=== PATIENT | male | born 1960 | race African-American/Black ===

== ENCOUNTER 2016-05-13 22:43 | Observation (INO) | payer SELFPAY ==
[2016-05-13 23:02] VITALS: BMI 27.3
[2016-05-13 23:11] LABS: ALL NEG? NO
[2016-05-13 23:21] LABS: AUTOMATED BASOPHIL 1.5 % (0-2); AUTOMATED EOSINOPHIL 1.6 % (0-5); AUTOMATED LYMPH 32.2 % (17-44); AUTOMATED MONOCYTE 6.5 % (3-10); AUTOMATED NEUTROPHIL 58.2 % (45-76)
[2016-05-13 23:24] LABS: BLOOD UREA NITROGEN 11 MG/DL (9-20); CALC CORRECTED 9.3 MG/DL (8.4-10.2); CALCIUM 9.1 MG/DL (8.4-10.2); CALCULATED OSMOLALITY 266 MOs/Kg (270-290); CHLORIDE 105 mEq/L (98-107); ETOH-MGDL 13 mg/dL; GLUCOSE 78 MG/DL (70-99); SODIUM LEVEL 139 mEq/L (137-146); TOTAL PROTEIN 7.7 G/DL (6.3-8.2)
[2016-05-13 23:34] LABS: LEUKOCYTES/URINE NEG (NEGATIVE); NITRITE/URINE NEG (NEGATIVE); URINE OCCULT BLOOD NEG (NEG/TRACE)
[2016-05-13 23:40] LABS: MDMA* NEG (NEGATIVE); METHAMPHETAMINES NEG (NEGATIVE); OXYCODONE NEG (NEGATIVE)
[2016-05-13 23:42] LABS: RBC/URINE 0-2 (0-2); WBC/URINE 0-2 (0-2)
--- NOTE | 2016-05-14 01:56 | EDPRACDOC ---
- General Information Mode of Arrival: Car - History of Present Illness Onset: 2 weeks HPI: PATIENT PRESENTS WITH SUICIDAL IDEATIONS. PRIOR ATTEMPT BY OVERDOSE. STATES USES COCAINE. TRIGGER IS THINKING ABOUT FIANCE HE LOST. NOT TAKING MEDICATIONS PRESCRIBED TO HIM Reason for Seeking Treatment: Self-referral Presents With: Reports: Depression, Suicidal Ideation Expresses: Reports: Suicidal Plan Suicidal Plan: Reports: Overdose Stressors: Reports: Relationships Relevant History: Reports: Depression, Suicidal Attempt Tetanus Up To Date?: Yes Able to Care for Self: Yes Able to Control Self: Yes Associated Signs and Symptoms: Reports: Cocaine <Feliz Lovelace - Last Filed: 05/14/16 01:56> <ArturoChe Babar - Last Filed: 05/14/16 14:18> - General Information Chief Complaint: Psychiatric Illness Stated Complaint: SI/DEPRESSION/ADDICTION Time Seen by Provider: 05/14/16 01:18 ED Past Medical History - History Reviewed Yes Nurses notes reviewed and agree except as marked Travel Outside of [place] in the Last 3 Months?: No - Patient Medical History Cardiac History: Reports: Hypertension Psychological History: Reports: Depression, Anxiety, Schizophrenia, Bipolar Disorder - Social Medical History Substance Abuse: Illicit Drugs Lives With: Family Lives In: Home <Feliz Lovelace - Last Filed: 05/14/16 01:56> EDM Review of Systems - Review of Systems ROS Negative Except as Marked: Yes All systems reviewed and were negative except as marked Constitutional: No Symptoms Reported. negative: Fever, Chills, Weakness, Fatigue, Loss of Appetite Eyes: No Symptoms Reported. negative: Redness, Blurred Vision, Double Vision, Discharge, Pain, Light Sensitive, Photophobia Ears: No Symptoms Reported. negative: Pain, Hearing Loss, Drainage, Ear Pulling Throat: No Symptoms Reported. negative: Pain, Swelling Nose: No Symptoms Reported. negative: Congestion, Bleeding, Discharge, Injection, Swelling, Deformity, Ecchymosis, Tender, Abrasion, Laceration Mouth: No Symptoms Reported. negative: Pain, Drooling Respiratory: No Symptoms Reported. negative: Cough, Brassy Cough, Barky Cough, Shortness of Breath, Wheezing, Hemoptysis Cardiovascular: No Symptoms Reported. negative: Chest Pain, Palpitations, Syncope, Edema, Orthopnea, PND, Skin Mottling, Cyanosis Gastrointestinal: No Symptoms Reported. negative: Pain, Constipation, Nausea, Vomiting, Diarrhea, Melena, Formula Intolerance Genitourinary: No Symptoms Reported. negative: Dysuria, Hematuria, Frequency, Discharge, Bleeding, Testicular Pain, Neurological: No Symptoms Reported. negative: Headache, Dizziness, Seizure, Numbness, Weakness, Speech Difficulty, Gait Difficulty Musculoskeletal: No Symptoms Reported. negative: Neck, Chestwall, Ribs, Back, Shoulder, Arm, Elbow, Forearm, Wrist, Hand, Pelvis, Hip, Femur, Knee, Leg, Ankle , Foot Integumentary: No Symptoms Reported. negative: Itching, Rash, Bruising, Wound Allergic/Immunologic: No Symptoms Reported. negative: Hives, Itching Hematologic: No Symptoms Reported. negative: Lymphadenopathy, Easy Bruising, Easy Bleeding Endocrine: No Symptoms Reported. negative: Weight Gain, Weight Loss Psychiatric: Suicidal. negative: Anxiety, Depression, Hallucinations, Insomnia <LovelaceWaleFeliz - Last Filed: 05/14/16 01:56> - Physical Exam Constitutional: Alert (Awake), No apparent distress Oriented to: Time, Person, Place Last recorded Vital Signs: Last Vital Signs Temp 98.3 F 05/13/16 22:58 Pulse 76 05/13/16 22:58 Resp 20 05/13/16 22:58 BP 146/89 05/13/16 22:58 Pulse Ox 97 05/13/16 22:58 Oxygen Pulse Oxygen Saturation 97 O2 Device Room Air Oxygen Flow Rate Fraction of Inspired Oxygen ( FIO2) - HEENT Head: Normal ( normocephalic) Eye Exam: Normal (PERRL, EOMI, Sclera white) Oropharynx: Normal (Pharynx:Moist without exudate,Gums-no swelling) Tympanic Membrane: Normal ENT EAC: Normal TMJ: Normal Nose: No Symptoms Reported (septum midline) Neck: Normal (FROM, trachea at midline) - Respiratory/Cardiovascular Respiratory: Normal - CTA (BBS clear to auscultation without adventitious sounds ) Cardiovascular: Normal (RRR without murmur, gallop or rub) - GI Auscultation: Normal (NABS) Palpation: Normal (Soft,No rebound or guarding, non distended) Tenderness: Non tender Orozco's Sign: Negative - Musculoskeletal Back: Normal (Non-Tender) Extremities: Normal (Normal tone, Pulses 2+ No cyanosis or edema, FROM) - Integumentary Skin: Normal, Warm, Dry Lymphatics: Normal (no adenopathy) - Neurologic Memory Impaired: Normal Motor Function: Normal (Normal tone, Pulses 2+ No cyanosis or edema, FROM) Cranial Nerve: Normal (CN II-X11 intact sensation, strength 5/5) Cerebellar: Normal Mood Description: Depressed Thought: Coherent Perception: Normal <Feliz Lovelace - Last Filed: 05/14/16 01:56> - Physical Exam Last recorded Vital Signs: Last Vital Signs Temp 98.0 F 05/14/16 12:00 Pulse 69 05/14/16 12:00 Resp 20 05/14/16 12:00 BP 125/71 05/14/16 12:00 Pulse Ox 98 05/14/16 12:00 Oxygen Pulse Oxygen Saturation 97 O2 Device Room Air Oxygen Flow Rate Fraction of Inspired Oxygen ( FIO2) <Che Morris - Last Filed: 05/14/16 14:18> - Results 05/13/16 23:02 05/13/16 23:02 WBC 7.8 xk/uL (3.8-10.8) 05/13/16 23:02 RBC 4.91 xM/uL (4.70-6.10) 05/13/16 23:02 Hgb 12.6 g/dL (14.0-18.0) L 05/13/16 23:02 Hct 38.6 % (42-52) L 05/13/16 23:02 MCV 79 fL (80-94) L 05/13/16 23:02 MCH 25.6 pg (27-32) L 05/13/16 23:02 MCHC 32.6 g/dl (33-36) L 05/13/16 23:02 RDW 15.5 % (11.5-14.5) H 05/13/16 23:02 Plt Count 263 xk/uL (130-400) 05/13/16 23:02 MPV 8.0 fL (7.4-10.4) 05/13/16 23:02 Neut % (Auto) 58.2 % (45-76) 05/13/16 23:02 Lymph % (Auto) 32.2 % (17-44) 05/13/16 23:02 Avery % (Auto) 6.5 % (3-10) 05/13/16 23:02 Eos % (Auto) 1.6 % (0-5) 05/13/16 23:02 Baso % (Auto) 1.5 % (0-2) 05/13/16 23:02 Absolute Neuts (auto) 4.52 xk/uL (1.7-8.2) 05/13/16 23:02 Absolute Lymphs (auto) 2.50 xk/uL (0.65-4.75) 05/13/16 23:02 Sodium 139 mEq/L (137-146) 05/13/16 23:02 Potassium 3.3 mEq/L (3.5-5.1) L 05/13/16 23:02 Chloride 105 mEq/L (98-107) 05/13/16 23:02 Carbon Dioxide 22 mMOL/L (22-33) 05/13/16 23:02 Anion Gap 15 mEq/L (8-16) 05/13/16 23:02 BUN 11 MG/DL (9-20) 05/13/16 23:02 Creatinine 0.90 MG/DL (0.66-1.25) 05/13/16 23:02 Estimated GFR (MDRD) > 60 mL/min (>=60) 05/13/16 23:02 Glucose 78 MG/DL (70-99) 05/13/16 23:02 Calculated Osmolality 266 MOs/Kg (270-290) L 05/13/16 23:02 Calcium 9.1 MG/DL (8.4-10.2) 05/13/16 23:02 Corrected Calcium 9.3 MG/DL (8.4-10.2) 05/13/16 23:02 Total Bilirubin 0.5 MG/DL (0.2-1.3) 05/13/16 23:02 AST 26 IU/L (17-59) 05/13/16 23:02 ALT 33 IU/L (21-72) 05/13/16 23:02 Alkaline Phosphatase 89 IU/L (38-126) 05/13/16 23:02 Total Protein 7.7 G/DL (6.3-8.2) 05/13/16 23:02 Albumin 3.8 G/DL (3.5-5.0) 05/13/16 23:02 Urine Color Yellow 05/13/16 23:09 Urine Clarity Clear 05/13/16 23:09 Urine pH 5.0 (5.0-8.0) 05/13/16 23:09 Ur Specific Shelley 1.005 05/13/16 23:09 Urine Protein Neg (NEG/TRACE) 05/13/16 23:09 Urine Glucose (UA) Neg (NEGATIVE) 05/13/16 23:09 Urine Ketones Neg (NEGATIVE) 05/13/16 23:09 Urine Occult Blood Neg (NEG/TRACE) 05/13/16 23:09 Urine Nitrite Neg (NEGATIVE) 05/13/16 23:09 Urine Bilirubin Neg (NEGATIVE) 05/13/16 23:09 Urine Urobilinogen 0.2 MG/DL (0-1) 05/13/16 23:09 Ur Leukocyte Esterase Neg (NEGATIVE) 05/13/16 23:09 Urine RBC 0-2 (0-2) 05/13/16 23:09 Urine WBC 0-2 (0-2) 05/13/16 23:09 Ur Epithelial Cells Occ 05/13/16 23:09 Urine Bacteria Few (NEG/FEW) 05/13/16 23:09 Urine Mucus Occ (NEG/OCC) 05/13/16 23:09 Urine Opiates Screen Neg (NEGATIVE) 05/13/16 23:09 Ur Oxycodone Screen Neg (NEGATIVE) 05/13/16 23:09 Urine Methadone Screen Neg (NEGATIVE) 05/13/16 23:09 Ur Barbiturates Screen Neg (NEGATIVE) 05/13/16 23:09 Ur Tricyclics Screen Neg (NEGATIVE) 05/13/16 23:09 Ur Phencyclidine Scrn Neg (NEGATIVE) 05/13/16 23:09 Ur Amphetamines Screen Neg (NEGATIVE) 05/13/16 23:09 U Methamphetamines Scrn Neg (NEGATIVE) 05/13/16 23:09 Urine MDMA Screen Neg (NEGATIVE) 05/13/16 23:09 U Benzodiazepines Scrn Neg (NEGATIVE) 05/13/16 23:09 Urine Cocaine Screen *positive* (NEGATIVE) H 05/13/16 23:09 Ur THC Screen Neg (NEGATIVE) 05/13/16 23:09 Plasma/Serum Ethyl Alc 0.01 % (<0.01) H 05/13/16 23:02 Lab Results 05/13/16 05/13/16 05/13/16 23:09 23:09 23:02 WBC 7.8 RBC 4.91 Hgb 12.6 L Hct 38.6 L MCV 79 L MCH 25.6 L MCHC 32.6 L RDW 15.5 H Plt Count 263 MPV 8.0 Neut % (Auto) 58.2 Lymph % (Auto) 32.2 Avery % (Auto) 6.5 Eos % (Auto) 1.6 Baso % (Auto) 1.5 Absolute Neuts (auto) 4.52 Absolute Lymphs (auto) 2.50 Sodium Potassium Chloride Carbon Dioxide Anion Gap BUN Creatinine Estimated GFR (MDRD) Glucose Calculated Osmolality Calcium Corrected Calcium Total Bilirubin AST ALT Alkaline Phosphatase Total Protein Albumin Urine Color Yellow Urine Clarity Clear Urine pH 5.0 Ur Specific Shelley 1.005 Urine Protein Neg Urine Glucose (UA) Neg Urine Ketones Neg Urine Occult Blood Neg Urine Nitrite Neg Urine Bilirubin Neg Urine Urobilinogen 0.2 Ur Leukocyte Esterase Neg Urine RBC 0-2 Urine WBC 0-2 Ur Epithelial Cells Occ Urine Bacteria Few Urine Mucus Occ Urine Opiates Screen Neg Ur Oxycodone Screen Neg Urine Methadone Screen Neg Ur Barbiturates Screen Neg Ur Tricyclics Screen Neg Ur Phencyclidine Scrn Neg Ur Amphetamines Screen Neg U Methamphetamines Scrn Neg Urine MDMA Screen Neg U Benzodiazepines Scrn Neg Urine Cocaine Screen *positive* H Ur THC Screen Neg Plasma/Serum Ethyl Alc 05/13/16 23:02 WBC RBC Hgb Hct MCV MCH MCHC RDW Plt Count MPV Neut % (Auto) Lymph % (Auto) Avery % (Auto) Eos % (Auto) Baso % (Auto) Absolute Neuts (auto) Absolute Lymphs (auto) Sodium 139 Potassium 3.3 L Chloride 105 Carbon Dioxide 22 Anion Gap 15 BUN 11 Creatinine 0.90 Estimated GFR (MDRD) > 60 Glucose 78 Calculated Osmolality 266 L Calcium 9.1 Corrected Calcium 9.3 Total Bilirubin 0.5 AST 26 ALT 33 Alkaline Phosphatase 89 Total Protein 7.7 Albumin 3.8 Urine Color Urine Clarity Urine pH Ur Specific Shelley Urine Protein Urine Glucose (UA) Urine Ketones Urine Occult Blood Urine Nitrite Urine Bilirubin Urine Urobilinogen Ur Leukocyte Esterase Urine RBC Urine WBC Ur Epithelial Cells Urine Bacteria Urine Mucus Urine Opiates Screen Ur Oxycodone Screen Urine Methadone Screen Ur Barbiturates Screen Ur Tricyclics Screen Ur Phencyclidine Scrn Ur Amphetamines Screen U Methamphetamines Scrn Urine MDMA Screen U Benzodiazepines Scrn Urine Cocaine Screen Ur THC Screen Plasma/Serum Ethyl Alc 0.01 H <Feliz Lovelace - Last Filed: 05/14/16 01:56> - Results 05/13/16 23:02 05/13/16 23:02 WBC 7.8 xk/uL (3.8-10.8) 05/13/16 23:02 RBC 4.91 xM/uL (4.70-6.10) 05/13/16 23:02 Hgb 12.6 g/dL (14.0-18.0) L 05/13/16 23:02 Hct 38.6 % (42-52) L 05/13/16 23:02 MCV 79 fL (80-94) L 05/13/16 23:02 MCH 25.6 pg (27-32) L 05/13/16 23:02 MCHC 32.6 g/dl (33-36) L 05/13/16 23:02 RDW 15.5 % (11.5-14.5) H 05/13/16 23:02 Plt Count 263 xk/uL (130-400) 05/13/16 23:02 MPV 8.0 fL (7.4-10.4) 05/13/16 23:02 Neut % (Auto) 58.2 % (45-76) 05/13/16 23:02 Lymph % (Auto) 32.2 % (17-44) 05/13/16 23:02 Avery % (Auto) 6.5 % (3-10) 05/13/16 23:02 Eos % (Auto) 1.6 % (0-5) 05/13/16 23:02 Baso % (Auto) 1.5 % (0-2) 05/13/16 23:02 Absolute Neuts (auto) 4.52 xk/uL (1.7-8.2) 05/13/16 23:02 Absolute Lymphs (auto) 2.50 xk/uL (0.65-4.75) 05/13/16 23:02 Sodium 139 mEq/L (137-146) 05/13/16 23:02 Potassium 3.3 mEq/L (3.5-5.1) L 05/13/16 23:02 Chloride 105 mEq/L (98-107) 05/13/16 23:02 Carbon Dioxide 22 mMOL/L (22-33) 05/13/16 23:02 Anion Gap 15 mEq/L (8-16) 05/13/16 23:02 BUN 11 MG/DL (9-20) 05/13/16 23:02 Creatinine 0.90 MG/DL (0.66-1.25) 05/13/16 23:02 Estimated GFR (MDRD) > 60 mL/min (>=60) 05/13/16 23:02 Glucose 78 MG/DL (70-99) 05/13/16 23:02 Calculated Osmolality 266 MOs/Kg (270-290) L 05/13/16 23:02 Calcium 9.1 MG/DL (8.4-10.2) 05/13/16 23:02 Corrected Calcium 9.3 MG/DL (8.4-10.2) 05/13/16 23:02 Total Bilirubin 0.5 MG/DL (0.2-1.3) 05/13/16 23:02 AST 26 IU/L (17-59) 05/13/16 23:02 ALT 33 IU/L (21-72) 05/13/16 23:02 Alkaline Phosphatase 89 IU/L (38-126) 05/13/16 23:02 Total Protein 7.7 G/DL (6.3-8.2) 05/13/16 23:02 Albumin 3.8 G/DL (3.5-5.0) 05/13/16 23:02 Urine Color Yellow 05/13/16 23:09 Urine Clarity Clear 05/13/16 23:09 Urine pH 5.0 (5.0-8.0) 05/13/16 23:09 Ur Specific Shelley 1.005 05/13/16 23:09 Urine Protein Neg (NEG/TRACE) 05/13/16 23:09 Urine Glucose (UA) Neg (NEGATIVE) 05/13/16 23:09 Urine Ketones Neg (NEGATIVE) 05/13/16 23:09 Urine Occult Blood Neg (NEG/TRACE) 05/13/16 23:09 Urine Nitrite Neg (NEGATIVE) 05/13/16 23:09 Urine Bilirubin Neg (NEGATIVE) 05/13/16 23:09 Urine Urobilinogen 0.2 MG/DL (0-1) 05/13/16 23:09 Ur Leukocyte Esterase Neg (NEGATIVE) 05/13/16 23:09 Urine RBC 0-2 (0-2) 05/13/16 23:09 Urine WBC 0-2 (0-2) 05/13/16 23:09 Ur Epithelial Cells Occ 05/13/16 23:09 Urine Bacteria Few (NEG/FEW) 05/13/16 23:09 Urine Mucus Occ (NEG/OCC) 05/13/16 23:09 Urine Opiates Screen Neg (NEGATIVE) 05/13/16 23:09 Ur Oxycodone Screen Neg (NEGATIVE) 05/13/16 23:09 Urine Methadone Screen Neg (NEGATIVE) 05/13/16 23:09 Ur Barbiturates Screen Neg (NEGATIVE) 05/13/16 23:09 Ur Tricyclics Screen Neg (NEGATIVE) 05/13/16 23:09 Ur Phencyclidine Scrn Neg (NEGATIVE) 05/13/16 23:09 Ur Amphetamines Screen Neg (NEGATIVE) 05/13/16 23:09 U Methamphetamines Scrn Neg (NEGATIVE) 05/13/16 23:09 Urine MDMA Screen Neg (NEGATIVE) 05/13/16 23:09 U Benzodiazepines Scrn Neg (NEGATIVE) 05/13/16 23:09 Urine Cocaine Screen *positive* (NEGATIVE) H 05/13/16 23:09 Ur THC Screen Neg (NEGATIVE) 05/13/16 23:09 Plasma/Serum Ethyl Alc 0.01 % (<0.01) H 05/13/16 23:02 RPR Nonreactive (NONREACTIVE) 05/13/16 23:02 Lab Results 05/13/16 05/13/16 05/13/16 23:09 23:09 23:02 WBC RBC Hgb Hct MCV MCH MCHC RDW Plt Count MPV Neut % (Auto) Lymph % (Auto) Avery % (Auto) Eos % (Auto) Baso % (Auto) Absolute Neuts (auto) Absolute Lymphs (auto) Sodium Potassium Chloride Carbon Dioxide Anion Gap BUN Creatinine Estimated GFR (MDRD) Glucose Calculated Osmolality Calcium Corrected Calcium Total Bilirubin AST ALT Alkaline Phosphatase Total Protein Albumin Urine Color Yellow Urine Clarity Clear Urine pH 5.0 Ur Specific Shelley 1.005 Urine Protein Neg Urine Glucose (UA) Neg Urine Ketones Neg Urine Occult Blood Neg Urine Nitrite Neg Urine Bilirubin Neg Urine Urobilinogen 0.2 Ur Leukocyte Esterase Neg Urine RBC 0-2 Urine WBC 0-2 Ur Epithelial Cells Occ Urine Bacteria Few Urine Mucus Occ Urine Opiates Screen Neg Ur Oxycodone Screen Neg Urine Methadone Screen Neg Ur Barbiturates Screen Neg Ur Tricyclics Screen Neg Ur Phencyclidine Scrn Neg Ur Amphetamines Screen Neg U Methamphetamines Scrn Neg Urine MDMA Screen Neg U Benzodiazepines Scrn Neg Urine Cocaine Screen *positive* H Ur THC Screen Neg Plasma/Serum Ethyl Alc RPR Nonreactive 05/13/16 05/13/16 23:02 23:02 WBC 7.8 RBC 4.91 Hgb 12.6 L Hct 38.6 L MCV 79 L MCH 25.6 L MCHC 32.6 L RDW 15.5 H Plt Count 263 MPV 8.0 Neut % (Auto) 58.2 Lymph % (Auto) 32.2 Avery % (Auto) 6.5 Eos % (Auto) 1.6 Baso % (Auto) 1.5 Absolute Neuts (auto) 4.52 Absolute Lymphs (auto) 2.50 Sodium 139 Potassium 3.3 L Chloride 105 Carbon Dioxide 22 Anion Gap 15 BUN 11 Creatinine 0.90 Estimated GFR (MDRD) > 60 Glucose 78 Calculated Osmolality 266 L Calcium 9.1 Corrected Calcium 9.3 Total Bilirubin 0.5 AST 26 ALT 33 Alkaline Phosphatase 89 Total Protein 7.7 Albumin 3.8 Urine Color Urine Clarity Urine pH Ur Specific Shelley Urine Protein Urine Glucose (UA) Urine Ketones Urine Occult Blood Urine Nitrite Urine Bilirubin Urine Urobilinogen Ur Leukocyte Esterase Urine RBC Urine WBC Ur Epithelial Cells Urine Bacteria Urine Mucus Urine Opiates Screen Ur Oxycodone Screen Urine Methadone Screen Ur Barbiturates Screen Ur Tricyclics Screen Ur Phencyclidine Scrn Ur Amphetamines Screen U Methamphetamines Scrn Urine MDMA Screen U Benzodiazepines Scrn Urine Cocaine Screen Ur THC Screen Plasma/Serum Ethyl Alc 0.01 H RPR - Additional Information Additional Information: No changes in clinical status or new information from previous documentation. Vital Signs: Temp:98.0 F HR: 69 BP: 125/71 RR: 20 Pox: 98%. Continue with current plan. PT IS STABLE FOR TRANSFER <Che Morris - Last Filed: 05/14/16 14:18> - Departure Yes I personally saw and evaluated the patient. Education/Counseling Given To: Patient Education/Counseling Given Regarding: Diagnosis, Treatment, Prognosis <Feliz Lovelace - Last Filed: 05/14/16 01:56> <Che Morris - Last Filed: 05/14/16 14:18> - Departure Condition: Stable Final Diagnosis: Suicidal ideations
[2016-05-14] MEDS ORDERED: MAGNESIUM HYDROXIDE 30 ML BOTTLE PO PRN (01:57)
[2016-05-14] MEDS ORDERED: Docusate Sodium 100 MG CAP PO PRN (01:57)
[2016-05-14] MEDS ORDERED: IBUPROFEN 400 MG TAB PO PRN (01:57)
[2016-05-14] MEDS ORDERED: ONDANSETRON HCL 4 MG ODT TAB PO PRN (01:57)
[2016-05-14] MEDS ORDERED: ACETAMINOPHEN 325 MG/TAB TABLET PO PRN (01:57)
[2016-05-14] MEDS ORDERED: TEMAZEPAM 15 MG CAP PO PRN (01:57)
[2016-05-14] MEDS ORDERED: LORAZEPAM 1 MG TAB PO PRN (01:57)
[2016-05-14] MEDS ORDERED: GUAIFENESIN 200 MG/10 ML UDC PO PRN (01:57)
--- NOTE | 2016-05-14 08:51 | EDTUNOTE ---
- SOAP Note Patient Problems: Active Problems Suicidal ideations (Acute) R45.851 Time Seen By Provider: 08:50 SOAP Note: S: Patient reported to ED for SI and anxiety, states he has not been taking his medications for a few months. Patient denies complaints today. Reports slept well. O: VSS, afebrile CTAB RRR Calm and cooperative A: SI Anxiety P: Continue medical management, await disposition plan by TA.
--- NOTE | 2016-05-14 13:38 | TUDEPART ---
Time Seen By Provider: 13:37 Discussion of OBS Stay: S: Patient reported to ED for SI and anxiety, states he has not been taking his medications for a few months. Patient denies complaints today. Reports slept well. O: VSS, afebrile CTAB RRR Calm and cooperative A: SI Anxiety P: Continue medical management, await disposition plan by TA. Disposition: Trans. to Other Hospital ([facility]) Final Diagnosis: Suicidal ideations Condition: Stable Education/Counseling Given To: Patient Education/Counseling Given Regarding: Diagnosis, Treatment, Prognosis, Follow Up Decision to Transfer Time: 13:38 - Physical Exam Constitutional: Alert (Awake), No apparent distress Oriented to: Time, Person, Place Last recorded Vital Signs: Last Vital Signs Temp 98.0 F 05/14/16 12:00 Pulse 69 05/14/16 12:00 Resp 20 05/14/16 12:00 BP 125/71 05/14/16 12:00 Pulse Ox 98 05/14/16 12:00 Oxygen Pulse Oxygen Saturation 97 O2 Device Room Air Oxygen Flow Rate Fraction of Inspired Oxygen ( FIO2) - HEENT Head: Normal ( normocephalic) Eye Exam: Normal (PERRL, EOMI, Sclera white) Oropharynx: Normal (Pharynx:Moist without exudate,Gums-no swelling) Tympanic Membrane: Normal ENT EAC: Normal TMJ: Normal Nose: No Symptoms Reported (septum midline) - Respiratory/Cardiovascular Respiratory: Normal - CTA (BBS clear to auscultation without adventitious sounds ) Cardiovascular: Normal (RRR without murmur, gallop or rub) - GI Auscultation: Normal (NABS) Palpation: Normal (Soft,No rebound or guarding, non distended) Tenderness: Non tender Orozco's Sign: Negative - Musculoskeletal Back: Normal (Non-Tender) Extremities: Normal (Normal tone, Pulses 2+ No cyanosis or edema, FROM) - Integumentary Skin: Normal, Warm, Dry Lymphatics: Normal (no adenopathy) - Neurologic Memory Impaired: Normal Motor Function: Normal (Normal tone, Pulses 2+ No cyanosis or edema, FROM) Cranial Nerve: Normal (CN II-X11 intact sensation, strength 5/5) Cerebellar: Normal Mood Description: Depressed Thought: Coherent Perception: Normal
[2016-05-14 14:37] VITALS: BP 105/68; PULSE 86; TEMP 98
== END 2016-05-14 14:20 ==
LOC: ED 22:43 → EDINP 05-14 01:57 → TUOBSINP 05-14 07:13
PROVIDERS: ADMIT Emergency Medicine; ATTEND Emergency Medicine
DX: R45.851 Suicidal ideations (principal); F41.9 Anxiety disorder, unspecified; F14.10 Cocaine abuse, uncomplicated; Z91.14 Patient's other noncompliance with medication regimen
CPT/HCPCS: 36415; 80053; 80307; 81001; 85025; 86592; 99284; G0378; J3490

== ENCOUNTER 2016-05-24 05:44 | Observation (INO) | payer SELFPAY ==
[2016-05-24 05:44] VITALS: BMI 27.3
--- NOTE | 2016-05-24 06:41 | EDPRACDOC ---
- General Information Chief Complaint: Psychiatric Illness Stated Complaint: PSYCH EVAL Time Seen by Provider: 05/24/16 06:34 Information Source: Patient Mode of Arrival: Car Home Medications: Home Medications No Home Medications 05/14/16 Allergies/Adverse Reactions: Allergies Allergy/AdvReac Type Severity Reaction Status Date / Time No Known Allergies Allergy Verified 05/24/16 06:37 - History of Present Illness Onset: today HPI: PT INITIALLY PRESENTED HERE ON 05/14 WITH SI AND HI. PT HAD BEEN OFF HIS MEDS. THE PT WAS TRANSFERRED ON THAT DATE TO [facility]. HE WAS STARTED BACK ON HIS MEDS , THEN RELEASED. PT SAID THAT HE DID NOT FEEL LIKE HE WAS WELL ENOUGH TO GO. PT TOOK HIS MEDS FOR 3 DAYS, THEN STOPPED TAKING THEM AGAIN. PT FEELS SI AND HI AGAIN. Reason for Seeking Treatment: Self-referral Presents With: Reports: Suicidal Ideation, Homicidal Ideation Expresses: Reports: Suicidal Intent Suicidal Plan: Reports: None Relevant History: Reports: Depression, Inpatient Treatment Medication Compliance: No Able to Care for Self: No Able to Control Self: No Associated Signs and Symptoms: Reports: Cocaine ED Past Medical History - Patient Medical History Cardiac History: Reports: Hypertension Psychological History: Reports: Depression, Anxiety, Schizophrenia, Bipolar Disorder Surgical History: Reports: Other (AVF SHUNT LEFT ARM) - Social Medical History Smoking Status: Heavy tobacco smoker (5 or more cigarettes/day or daily pipe/ cigar) Social History: Reports: Cocaine Use ETOH: Abuse Substance Abuse: Illicit Drugs Lives In: Home EDM Review of Systems - Review of Systems ROS Negative Except as Marked: Yes All systems reviewed and were negative except as marked Psychiatric: Suicidal - Physical Exam Constitutional: Alert (Awake), No apparent distress Oriented to: Time, Person, Place Last recorded Vital Signs: Last Vital Signs Temp 98.5 F 05/24/16 06:35 Pulse 91 05/24/16 06:35 Resp 18 05/24/16 06:35 BP 134/80 05/24/16 06:35 Pulse Ox 98 05/24/16 06:35 Oxygen Pulse Oxygen Saturation 98 O2 Device Room Air Oxygen Flow Rate Fraction of Inspired Oxygen ( FIO2) - HEENT Head: Normal ( normocephalic) Eye Exam: Normal (PERRL, EOMI, Sclera white) Oropharynx: Normal (Pharynx:Moist without exudate,Gums-no swelling) ENT EAC: Normal TMJ: Normal Nose: No Symptoms Reported (septum midline) Neck: Normal (FROM, trachea at midline) - Respiratory/Cardiovascular Respiratory: Normal - CTA (BBS clear to auscultation without adventitious sounds ) Cardiovascular: Normal (RRR without murmur, gallop or rub) - GI Auscultation: Normal (NABS) Palpation: Normal (Soft,No rebound or guarding, non distended) Tenderness: Non tender Orozco's Sign: Negative - Musculoskeletal Back: Normal (Non-Tender) Extremities: Normal (Normal tone, Pulses 2+ No cyanosis or edema, FROM) - Integumentary Skin: Normal, Warm, Dry Lymphatics: Normal (no adenopathy) - Neurologic Memory Impaired: Normal Motor Function: Normal (Normal tone, Pulses 2+ No cyanosis or edema, FROM) Cranial Nerve: Normal (CN II-X11 intact sensation, strength 5/5) Cerebellar: Normal Mood Description: Normal Perception: Normal - Results 05/24/16 06:25 05/24/16 06:25 - EKG EKG #1 EKG Time: 07:05 -: Yes EKG interpreted by me Rate: bpm: 84 [employer]: Normal Rhythm: NSR Block: None Hypertrophy: None ST: Normal - Departure Yes I personally saw and evaluated the patient. Disposition: Admit to Condition: Fair Final Diagnosis: Suicidal ideations, Cocaine abuse Education/Counseling Given To: Patient Education/Counseling Given Regarding: Diagnosis, Treatment Referrals: None,No Provider [Primary Care Provider] - One Week Prescriptions: No Action No Home Medications 0 NA DIR #0 info
[2016-05-24 06:43] LABS: ALL NEG? NO
[2016-05-24 06:46] LABS: AUTOMATED BASOPHIL 1.2 % (0-2); AUTOMATED EOSINOPHIL 1.2 % (0-5); AUTOMATED LYMPH 20.2 % (17-44); AUTOMATED MONOCYTE 7.1 % (3-10); AUTOMATED NEUTROPHIL 70.3 % (45-76)
[2016-05-24 06:50] LABS: MDMA* NEG (NEGATIVE); METHAMPHETAMINES NEG (NEGATIVE); OXYCODONE NEG (NEGATIVE)
[2016-05-24 06:55] LABS: BLOOD UREA NITROGEN 17 MG/DL (9-20); CALCIUM 9.4 MG/DL (8.4-10.2); CALCULATED OSMOLALITY 267 MOs/Kg (270-290); CHLORIDE 103 mEq/L (98-107); ETOH-MGDL < 10 mg/dL; GLUCOSE 81 MG/DL (70-99); SODIUM LEVEL 138 mEq/L (137-146); TOTAL PROTEIN 8.5 G/DL (6.3-8.2)
[2016-05-24 07:03] LABS: LEUKOCYTES/URINE NEG (NEGATIVE); NITRITE/URINE NEG (NEGATIVE); RBC/URINE 0-2 (0-2); URINE OCCULT BLOOD NEG (NEG/TRACE); WBC/URINE 0-2 (0-2)
[2016-05-24] MEDS ORDERED: GUAIFENESIN 200 MG/10 ML UDC PO PRN (07:03)
[2016-05-24] MEDS ORDERED: LORAZEPAM 0.5 MG TAB PO PRN (07:03)
[2016-05-24] MEDS ORDERED: ACETAMINOPHEN 325 MG/TAB TABLET PO PRN (07:03)
[2016-05-24] MEDS ORDERED: MAGNESIUM HYDROXIDE 30 ML BOTTLE PO PRN (07:03)
[2016-05-24] MEDS ORDERED: Docusate Sodium 100 MG CAP PO PRN (07:03)
[2016-05-24] MEDS ORDERED: TEMAZEPAM 15 MG CAP PO PRN (07:03)
[2016-05-24] MEDS ORDERED: ONDANSETRON HCL 4 MG ODT TAB PO PRN (07:03)
[2016-05-24] MEDS ORDERED: NICOTINE 21 MG PATCH TOP SCH (08:00)
--- NOTE | 2016-05-24 08:13 | EDTUNOTE ---
- SOAP Note Patient Problems: Active Problems Cocaine abuse (Acute) F14.10 Suicidal ideations (Acute) R45.851 SOAP Note: S: pt sitting quietly watching TV. No complaints. O: VS nml A: Cocaine abuse (Acute) Suicidal ideations (Acute) P: will cont to monitor pending further evaluation and disposition
[2016-05-24] MEDS ORDERED: Vaccine Screening Complete SCH (09:00)
[2016-05-24 11:42] VITALS: BP 126/74
--- NOTE | 2016-05-24 15:39 | TUDEPART ---
Disposition: Formerly [facility], [facility]. Final Diagnosis: Suicidal ideations, Cocaine abuse Condition: Fair Education/Counseling Given Regarding: Diagnosis, Treatment, Prognosis, Follow Up Decision to Transfer Time: 15:39 (Formerly [facility], [facility]) - Physical Exam Constitutional: Alert (Awake), No apparent distress Oriented to: Time, Person, Place Last recorded Vital Signs: Last Vital Signs Temp 97.9 F 05/24/16 11:41 Pulse 87 05/24/16 11:41 Resp 18 05/24/16 11:41 BP 126/74 05/24/16 11:41 Pulse Ox 99 05/24/16 11:41 Oxygen Pulse Oxygen Saturation 98 O2 Device Room Air Oxygen Flow Rate Fraction of Inspired Oxygen ( FIO2) - HEENT Head: Normal ( normocephalic) Eye Exam: Normal (PERRL, EOMI, Sclera white) Oropharynx: Normal (Pharynx:Moist without exudate,Gums-no swelling) ENT EAC: Normal TMJ: Normal Nose: No Symptoms Reported (septum midline) - Respiratory/Cardiovascular Respiratory: Normal - CTA (BBS clear to auscultation without adventitious sounds ) Cardiovascular: Normal (RRR without murmur, gallop or rub) - GI Auscultation: Normal (NABS) Palpation: Normal (Soft,No rebound or guarding, non distended) Tenderness: Non tender Orozco's Sign: Negative - Musculoskeletal Back: Normal (Non-Tender) Extremities: Normal (Normal tone, Pulses 2+ No cyanosis or edema, FROM) - Integumentary Skin: Normal, Warm, Dry Lymphatics: Normal (no adenopathy) - Neurologic Memory Impaired: Normal Motor Function: Normal (Normal tone, Pulses 2+ No cyanosis or edema, FROM) Cranial Nerve: Normal (CN II-X11 intact sensation, strength 5/5) Cerebellar: Normal Mood Description: Normal Perception: Normal
[2016-05-24 16:10] VITALS: PULSE 85; TEMP 98.5
[2016-05-25] MEDS ORDERED: PNEUMOCOCCAL 0.5 ML VIAL IM ONE (08:00)
== END 2016-05-24 15:43 ==
LOC: ED 05:44 → TUOBSINP 07:03
PROVIDERS: ADMIT Emergency Medicine; ATTEND Emergency Medicine
DX: R45.851 Suicidal ideations (principal); F14.10 Cocaine abuse, uncomplicated; F17.200 Nicotine dependence, unspecified, uncomplicated
CPT/HCPCS: 36415; 80053; 80307; 81001; 84484; 85025; 86592; 93005; 99282; G0378; J3490